=== PATIENT | male | born 1950 ===

== ENCOUNTER 2017-11-25 07:51 | Day surgery (SDC) | payer MEDICARE, OTHER ==
[2017-11-25] MEDS ORDERED: Propofol 10 mg/ml Inj (20 ML) ONE (10:00)
[2017-11-25] MEDS ORDERED: Lactated Ringer's 500 ML IV ONE (10:02)
[2017-11-25 10:50] VITALS: PULSE 55; TEMP 97
[2017-11-25 11:12] VITALS: BP 128/75; RESP 19; O2SAT 97
== END 2017-11-25 11:29 | disposition home or self-care (01) ==
LOC: H.ENDO 07:51
PROVIDERS: ATTEND Internal Medicine Gastroenterology
DX: K64.8 Other hemorrhoids (principal); E11.9 Type 2 diabetes mellitus without complications; I10 Essential (primary) hypertension; G47.30 Sleep apnea, unspecified; N40.0 Benign prostatic hyperplasia without lower urinary tract symptoms; R19.5 Other fecal abnormalities
CPT/HCPCS: 45378; 82948; J2001; J2704; J7120